=== PATIENT | male | born 1995 | race Caucasian/White ===

== ENCOUNTER 2016-06-01 16:57 | Inpatient (IN) | payer OTHER ==
[~2016-06-01] VITALS: Ht 162.6 cm; Wt 62.9 kg
[~2016-06-01 16:57] MED LIST: DEPAKOTE ER500 MG PO; DEPAKOTE500 MG PO; DIVALPROEX SOD250 M1 PO; DIVALPROEX SOD500 M1 PO; ERYTHROMYCIN O3.5 GM LEFT EYE; KEPPRA750 MG PO; LEVETIRACETAM750 MG PO; OXCARBAZEPINE150 MG PO; ZONISAMIDE100 MG PO
[2016-06-01] MEDS ORDERED: LORAZEPAM0.5 MG PO (17:12)
[2016-06-01 17:35] LABS: HEMATOCRIT 41.2 % (38.0-50.0); MCH 31.2 PG (29.0-34.0); MCHC 35.2 G/DL (30.0-36.0); MCV 88.6 FL (86-99); MEAN PLAT.VOLUME 10.4 uM^3 (9.0-12.4); PLATELET COUNT 285 K/uL (156-360); RBC DIS.WIDTH-CV 13.2 % (11.8-14.6); RED BLOOD COUNT 4.65 M/uL (4.00-5.50); WHITE BLOOD COUNT 16.5 K/uL (4.1-10.2)
[2016-06-01 17:54] LABS: CHLORIDE 105 mEq/L (99-109); SODIUM 142 mEq/L (136-147)
[2016-06-01 17:56] LABS: GLUCOSE 212 mg/dL (70-99)
[2016-06-01 17:57] LABS: ANION GAP 14 MEQ/L (2-14)
[2016-06-01 18:00] LABS: GFR ESTIMATE (CALCULATED) > 59 mL/min/
[2016-06-01 18:01] LABS: UREA NITROGEN (BUN) 17 mg/dL (9-23)
[2016-06-01] MEDS ORDERED: DEPAKOTE ER250 MG PO (21:27)
[2016-06-01] MEDS ORDERED: DEPAKOTE ER500 MG PO (21:27)
[2016-06-02 03:41] LABS: ADD MIUA? NO; BILIRUBIN NEGATIVE; BLOOD NEGATIVE; COLOR YELLOW ((YELLOW)); GLUCOSE (STRIP) NEGATIVE; KETONES 80; LEUKOCYTES NEGATIVE; NITRITE NEGATIVE; PROTEIN (STRIP) 30; SPECIFIC GRAVITY 1.028 (1.000-1.030); UCUL ADDED? NO; UROBILINOGEN 0.2 MG/DL (0.2-1.0)
[2016-06-02 07:19] LABS: HEMATOCRIT 37.8 % (38.0-50.0); MCHC 34.4 G/DL (30.0-36.0); PLATELET COUNT 221 K/uL (156-360); RBC DIS.WIDTH-CV 13.8 % (11.8-14.6); RBC DIS.WIDTH-SD 45.8 % (39-53)
[2016-06-02 07:20] LABS: WHITE BLOOD COUNT 9.6 K/uL (4.1-10.2)
[2016-06-02 07:21] LABS: ALKALINE PHOSPHATASE 59 IU/L (3-129); ANION GAP 8 MEQ/L (2-14); CHLORIDE 105 MEQ/L (99-109); GFR ESTIMATE (CALCULATED) > 59 mL/min/; SAMPLE HEMOLYSIS CHECK 0; SAMPLE ICTERIC CHECK 0; SAMPLE LIPEMIA CHECK 0; SODIUM 139 MEQ/L (136-147); TOTAL BILIRUBIN 0.7 MG/DL (0.0-1.0); UREA NITROGEN (BUN) 17 mg/dL (9-23)
[2016-06-02 07:22] LABS: GLUCOSE 85 mg/dL (70-99)
[2016-06-02 14:20] VITALS: BP 132/67
== END 2016-06-02 14:34 | disposition left against medical advice (07) | DRG 101 ==
LOC: EME 16:57 → EDOF 20:53
PROVIDERS: Emergency Medicine; Internal Medicine
DX: G40.901 Epilepsy, unspecified, not intractable, with status epilepticus (principal); Z91.14 Patient's other noncompliance with medication regimen; Z88.0 Allergy status to penicillin; Z88.1 Allergy status to other antibiotic agents; F17.210 Nicotine dependence, cigarettes, uncomplicated; F12.10 Cannabis abuse, uncomplicated
CPT/HCPCS: 70450; 80048; 80053; 80164; 81003; 82803; 85027; 93005; 95819; 99281; 99285; J1644; J2060; J2250; J2405; J7030; S0028

== ENCOUNTER 2016-06-24 12:58 | Emergency (ER) | payer OTHER ==
[~2016-06-24] VITALS: Ht 167.6 cm; Wt 67.0 kg
[~2016-06-24 12:58] MED LIST changes: +DEPAKOTE ER250 MG PO; +LORAZEPAM0.5 MG PO
[2016-06-24 13:45] LABS: EOSINOPHIL (%) 0.1 % (0-5); HEMATOCRIT 43.8 % (38.0-50.0); IMMATURE GRANULOCYTE (%) 0.3 % (0.0-0.7); IMMATURE GRANULOCYTE COUNT 0.9 K/uL; LYMPHOCYTE COUNT 2.3 K/uL (1.0-2.8); MCH 31.4 PG (29.0-34.0); MCHC 35.2 G/DL (30.0-36.0); MCV 89.2 FL (86-99); MEAN PLAT.VOLUME 10.8 uM^3 (9.0-12.4); MONOCYTE (%) 4.7 % (3-12); MONOCYTE COUNT 1.3 K/uL (0-0.8); NEUTROPHIL (%) 86.4 % (45-76); NEUTROPHIL COUNT 23.9 K/uL (1.8-6.4); RBC DIS.WIDTH-CV 13.2 % (11.8-14.6); RBC DIS.WIDTH-SD 42.3 % (39-53); RED BLOOD COUNT 4.91 M/uL (4.00-5.50)
[2016-06-24 13:47] LABS: CHLORIDE 105 mEq/L (99-109); POTASSIUM 3.6 mEq/L (3.7-5.4); SODIUM 141 mEq/L (136-147)
[2016-06-24 13:48] LABS: PLATELET COUNT 320 K/uL (156-360); WHITE BLOOD COUNT 27.6 K/uL (4.1-10.2)
[2016-06-24 13:49] LABS: GLUCOSE 220 mg/dL (70-99)
[2016-06-24 13:50] LABS: ANION GAP 17 MEQ/L (2-14)
[2016-06-24 13:52] LABS: SERUM ETHYL ALCOHOL < 10 mg/dL
[2016-06-24 13:53] LABS: GFR ESTIMATE (CALCULATED) > 59 mL/min/; UREA NITROGEN (BUN) 20 mg/dL (9-23)
[2016-06-24 19:46] VITALS: BP 127/53
== END 2016-06-24 19:48 | disposition home or self-care (01) ==
LOC: EME 12:58
PROVIDERS: Emergency Medicine
DX: G40.909 Epilepsy, unspecified, not intractable, without status epilepticus (principal); D72.829 Elevated white blood cell count, unspecified; Z91.14 Patient's other noncompliance with medication regimen; F17.200 Nicotine dependence, unspecified, uncomplicated
CPT/HCPCS: 70450; 80048; 85025; 99281; 99285; G0480; J2060; J2250

== ENCOUNTER 2016-09-11 07:19 | Inpatient (IN) | payer OTHER ==
[~2016-09-11] VITALS: Ht 177.8 cm; Wt 64.7 kg
[2016-09-11] VITALS (12 sets, daily range): BP systolic 107–126; BP diastolic 50–61
[2016-09-11 08:06] LABS: EOSINOPHIL COUNT 0.1 K/uL (0-0.3); HEMATOCRIT 45.5 % (36.0-46.0); IMMATURE GRANULOCYTE (%) 0.4 % (0.0-0.7); IMMATURE GRANULOCYTE COUNT 0.1 K/uL; INSTRUMENT ABS NEUTROPHIL CT 8.2 K/uL; LYMPHOCYTE COUNT 4.4 K/uL (1.0-2.8); MCH 30.8 PG (29.0-34.0); MCHC 33.4 G/DL (30.0-36.0); MCV 92.1 FL (86-99); MEAN PLAT.VOLUME 10.5 uM^3 (9.0-12.4); MONOCYTE (%) 3.6 % (3-12); MONOCYTE COUNT 0.5 K/uL (0-0.8); NEUTROPHIL (%) 61.6 % (45-76); NEUTROPHIL COUNT 8.2 K/uL (1.8-6.4); PLATELET COUNT 316 K/uL (156-360); RBC DIS.WIDTH-CV 12.1 % (11.8-14.6); RBC DIS.WIDTH-SD 40.5 % (39-53); RED BLOOD COUNT 4.94 M/uL (4.00-5.50); WHITE BLOOD COUNT 13.4 K/uL (4.1-10.2)
[2016-09-11 08:08] LABS: PCO2 58 mm Hg (35-45); pH 7.24 (7.35-7.45)
[2016-09-11 08:09] LABS: BASE EXCESS -3.7 mEq/L (-3 to +3); BICARBONATE 24.9 mEq/L (22-26); CARBOXY HGB 2.6 % (0-5); DEVICE 840; FI02 50 %; HEMOGLOBIN 15.4 (11.9-15.5); MECHANICAL RATE 16 resp/min; METHEMOGLOBIN 1.3 % (0-1.5); MODE AC; PO2 168 mm Hg (80-100); SITE LR; TIDAL VOLUME 400 ML; TOTAL RESP RATE 16 resp/min
[2016-09-11 08:10] LABS: COMMENTS - BLOOD GASES A+C+; PEEP 5 CM/H20
[2016-09-11] MEDS ORDERED: LAMICTAL25 MG PO (08:29)
[2016-09-11] MEDS ORDERED: DIVALPROEX SOD250 M1 PO (08:29)
[2016-09-11 09:01] LABS: ALKALINE PHOSPHATASE 69 IU/L (3-129); ANION GAP 15 MEQ/L (2-14); CHLORIDE 103 MEQ/L (99-109); GFR ESTIMATE (CALCULATED) > 59 mL/min/; GLUCOSE 231 mg/dL (70-99); POTASSIUM 3.2 MEQ/L (3.7-5.4); SAMPLE HEMOLYSIS CHECK 0; SAMPLE ICTERIC CHECK 0; SAMPLE LIPEMIA CHECK 0; SODIUM 140 MEQ/L (136-147); TOTAL BILIRUBIN 0.4 MG/DL (0.0-1.0); UREA NITROGEN (BUN) 19 mg/dL (9-23)
[2016-09-11 09:55] LABS: ADD MEDTOX COMMENT Y; AMPHETAMINE NEGATIVE (500 ng/mL); BARBITURATES NEGATIVE (200 ng/mL); BENZODIAZEPINES NEGATIVE (150 ng/mL); COCAINE NEGATIVE (150 ng/mL); INTERNAL CONTROLS VALID? YES; METHADONE NEGATIVE (200 ng/mL); METHAMPHETAMINE NEGATIVE (500 ng/mL); OPIATES (MORPHINE) NEGATIVE (100 ng/mL); OXYCODONE NEGATIVE (100 ng/mL); PHENCYCLIDINE NEGATIVE (25 ng/mL); PROPOXYPHENE NEGATIVE (300 ng/mL); THC CANNABINOIDS PRESUMPTIVE POSITIVE (50 ng/mL); TRICYCLIC ANTIDEPRESSANTS NEGATIVE (300 ng/mL)
[2016-09-11 12:57] LABS: ADD MIUA? YES; BILIRUBIN NEGATIVE; BLOOD NEGATIVE; COLOR YELLOW ((YELLOW)); GLUCOSE (STRIP) >=500; KETONES NEGATIVE; LEUKOCYTES NEGATIVE; NITRITE NEGATIVE; PROTEIN (STRIP) 30; SPECIFIC GRAVITY 1.018 (1.000-1.030); UROBILINOGEN 0.2 MG/DL (0.2-1.0)
[2016-09-11 13:20] LABS: BACTERIA RARE /HPF; EPITHELIAL CELLS RARE /HPF; HYALINE CASTS 0-5 /LPF; MUCUS NONE SEEN /LPF; RED BLOOD CELLS 0-5 /HPF (0-5); UCUL ADDED? NO; WHITE BLOOD CELLS 0-5 /HPF (0-5)
[2016-09-11 15:12] LABS: METH RESISTANT S AUREUS PCR NEGATIVE (NEGATIVE)
[2016-09-11 15:14] LABS: PROBE CHECK PASS; SPECIMEN PROCESSING CONTROL PASS
[2016-09-12] VITALS (16 sets, daily range): BP systolic 110–158; BP diastolic 53–88
[2016-09-12 07:20] LABS: HEMATOCRIT 38.3 % (38.0-50.0); MCH 31.3 PG (29.0-34.0); MCHC 34.7 G/DL (30.0-36.0); MCV 90.1 FL (86-99); RBC DIS.WIDTH-CV 12.4 % (11.8-14.6); RED BLOOD COUNT 4.25 M/uL (4.00-5.50)
[2016-09-12 07:29] LABS: WHITE BLOOD COUNT 5.5 K/uL (4.1-10.2)
[2016-09-12 08:11] LABS: ANION GAP 8 MEQ/L (2-14); CHLORIDE 111 MEQ/L (99-109); GFR ESTIMATE (CALCULATED) > 59 mL/min/; POTASSIUM 3.2 MEQ/L (3.7-5.4); SAMPLE HEMOLYSIS CHECK 0; SAMPLE ICTERIC CHECK 0; SAMPLE LIPEMIA CHECK 0; SODIUM 141 MEQ/L (136-147); UREA NITROGEN (BUN) 8 mg/dL (9-23)
[2016-09-12 08:13] LABS: GLUCOSE 70 mg/dL (70-99)
[2016-09-12 09:15] LABS: MEAN PLAT.VOLUME 10.6 uM^3 (9.0-12.4)
[2016-09-12 09:21] LABS: PLATELET COUNT 201 K/uL (156-360)
[2016-09-12] MEDS ORDERED: DEPAKOTE ER500 MG PO (14:53)
[2016-09-13 03:55] VITALS: BP 133/70
[2016-09-13 07:40] VITALS: BP 135/68
[2016-09-13 11:11] VITALS: BP 133/76
[2016-09-13] MEDS ORDERED: ZONISAMIDE100 MG PO (13:06)
== END 2016-09-13 13:39 | disposition home or self-care (01) | DRG 100 ==
LOC: EME 07:19 → EDBD 07:19 → EME 07:19 → EDSEX 07:19 → EDOF 09:17 → 4WEST 12:15 → EDOF 12:19 → 4WEST 12:36 → 5SOUTH 09-12 16:21
PROVIDERS: Emergency Medicine; Internal Medicine Critical Care Medicine
DX: G40.401 Other generalized epilepsy and epileptic syndromes, not intractable, with status epilepticus (principal); J96.01 Acute respiratory failure with hypoxia; Z91.14 Patient's other noncompliance with medication regimen; E87.2 Acidosis; E87.6 Hypokalemia; F12.10 Cannabis abuse, uncomplicated; D72.829 Elevated white blood cell count, unspecified; F19.10 Other psychoactive substance abuse, uncomplicated; R45.1 Restlessness and agitation; R00.0 Tachycardia, unspecified; F17.210 Nicotine dependence, cigarettes, uncomplicated; E86.0 Dehydration
CPT/HCPCS: 36600; 71010; 80048; 80053; 80164; 81003; 82803; 82948; 83605; 84999; 85025; 85027; 87040; 87070; 87205; 87641; 93005; 94002; 94003; 95819; 99281; 99285; J1630; J1650; J1953; J1956; J2060; J2250; J2704; J3480; J7030; J7050; S0028

== ENCOUNTER 2016-09-24 14:57 | Inpatient (IN) | payer OTHER ==
[2016-09-24] VITALS (8 sets, daily range): BP systolic 109–123; BP diastolic 48–67
[~2016-09-24] VITALS: Ht 172.7 cm; Wt 62.4 kg
[~2016-09-24 14:57] MED LIST changes: +LAMICTAL25 MG PO
[2016-09-24 15:36] LABS: HEMATOCRIT 45.9 % (38.0-50.0); MCHC 32.9 G/DL (30.0-36.0); MCV 91.3 FL (86-99); MEAN PLAT.VOLUME 10.1 uM^3 (9.0-12.4); PLATELET COUNT 367 K/uL (156-360); RBC DIS.WIDTH-CV 12.6 % (11.8-14.6); RBC DIS.WIDTH-SD 42.3 % (39-53); RED BLOOD COUNT 5.03 M/uL (4.00-5.50); WHITE BLOOD COUNT 15.4 K/uL (4.1-10.2)
[2016-09-24 15:56] LABS: CHLORIDE 106 mEq/L (99-109); POTASSIUM 4.1 mEq/L (3.7-5.4); SODIUM 141 mEq/L (136-147)
[2016-09-24 15:58] LABS: GLUCOSE 156 mg/dL (70-99)
[2016-09-24 15:59] LABS: ANION GAP 12 MEQ/L (2-14)
[2016-09-24 16:01] LABS: GFR ESTIMATE (CALCULATED) > 59 mL/min/
[2016-09-24 16:02] LABS: UREA NITROGEN (BUN) 17 mg/dL (9-23)
[2016-09-24 16:42] LABS: ADD MIUA? YES; BILIRUBIN NEGATIVE; BLOOD NEGATIVE; COLOR YELLOW ((YELLOW)); GLUCOSE (STRIP) NEGATIVE; KETONES 5; LEUKOCYTES NEGATIVE; NITRITE NEGATIVE; PROTEIN (STRIP) 30; SPECIFIC GRAVITY 1.028 (1.000-1.030); UROBILINOGEN 0.2 MG/DL (0.2-1.0)
[2016-09-24 16:48] LABS: BACTERIA NONE SEEN /HPF; EPITHELIAL CELLS NONE SEEN /HPF; GRANULAR CASTS 0-5 /LPF; HYALINE CASTS TNTC /LPF; MUCUS 1+ /LPF; RED BLOOD CELLS 0-5 /HPF (0-5); UCUL ADDED? NO; WHITE BLOOD CELLS 0-5 /HPF (0-5)
[2016-09-24 16:49] LABS: AMPHETAMINE NEGATIVE (500 ng/mL); BARBITURATES NEGATIVE (200 ng/mL); BENZODIAZEPINES NEGATIVE (150 ng/mL); COCAINE NEGATIVE (150 ng/mL); INTERNAL CONTROLS VALID? YES; METHADONE NEGATIVE (200 ng/mL); METHAMPHETAMINE NEGATIVE (500 ng/mL); OPIATES (MORPHINE) NEGATIVE (100 ng/mL); OXYCODONE NEGATIVE (100 ng/mL); PHENCYCLIDINE NEGATIVE (25 ng/mL); PROPOXYPHENE NEGATIVE (300 ng/mL); THC CANNABINOIDS PRESUMPTIVE POSITIVE (50 ng/mL); TRICYCLIC ANTIDEPRESSANTS NEGATIVE (300 ng/mL)
[2016-09-24 16:50] LABS: ADD MEDTOX COMMENT Y
[2016-09-24] MEDS ORDERED: ZONISAMIDE100 MG PO (16:57)
[2016-09-24 17:08] LABS: BASE EXCESS -3.2 mEq/L (-3 to +3); BICARBONATE 23.6 mEq/L (22-26); CARBOXY HGB 2.1 % (0-5); COMMENTS - BLOOD GASES C+A-N/A; DEVICE 980 VENTILATOR; FI02 50 %; MECHANICAL RATE 16 resp/min; METHEMOGLOBIN 1.3 % (0-1.5); MODE AC; PCO2 48 mm Hg (35-45); PEEP 5 CM/H20; PO2 113 mm Hg (80-100); SITE RR; TIDAL VOLUME 450 ML; TOTAL RESP RATE 18 resp/min
[2016-09-24 19:33] LABS: METH RESISTANT S AUREUS PCR NEGATIVE (NEGATIVE)
[2016-09-24 19:34] LABS: PROBE CHECK PASS; SPECIMEN PROCESSING CONTROL PASS
[2016-09-25] VITALS (16 sets, daily range): BP systolic 115–135; BP diastolic 60–94
[2016-09-25 06:15] LABS: HEMATOCRIT 38.4 % (38.0-50.0); MCH 31.1 PG (29.0-34.0); MCHC 34.4 G/DL (30.0-36.0); MCV 90.4 FL (86-99); RBC DIS.WIDTH-SD 42.9 % (39-53); RED BLOOD COUNT 4.25 M/uL (4.00-5.50); WHITE BLOOD COUNT 8.9 K/uL (4.1-10.2)
[2016-09-25 06:47] LABS: ALKALINE PHOSPHATASE 56 IU/L (3-129); ANION GAP 8 MEQ/L (2-14); CHLORIDE 110 MEQ/L (99-109); GFR ESTIMATE (CALCULATED) > 59 mL/min/; POTASSIUM 3.5 MEQ/L (3.7-5.4); SAMPLE HEMOLYSIS CHECK 0; SAMPLE ICTERIC CHECK 0; SAMPLE LIPEMIA CHECK 0; SODIUM 142 MEQ/L (136-147); TOTAL BILIRUBIN 0.7 MG/DL (0.0-1.0); UREA NITROGEN (BUN) 15 mg/dL (9-23)
[2016-09-25 06:50] LABS: GLUCOSE 80 mg/dL (70-99)
[2016-09-25 06:58] LABS: MEAN PLAT.VOLUME 10.8 uM^3 (9.0-12.4); PLAT.SUFFICIENCY ADEQUATE
[2016-09-25 07:05] LABS: PLATELET COUNT 221 K/uL (156-360)
[2016-09-25] MEDS ORDERED: DIVALPROEX SOD250 M1 PO (11:08)
[2016-09-25] MEDS ORDERED: LAMICTAL25 MG PO (11:09)
== END 2016-09-25 17:25 | disposition left against medical advice (07) | DRG 918 ==
LOC: EME → EDBD 14:57 → EME 14:57 → EDOF 16:10 → 4WEST 16:10
PROVIDERS: Emergency Medicine; Internal Medicine Pulmonary Disease
PROC: 0BH17EZ Insertion of Endotracheal Airway into Trachea, Via Natural or Artificial Opening (ICD-10-PCS; principal; 2016-09-24)
PROC: 5A09357 Assistance with Respiratory Ventilation, Less than 24 Consecutive Hours, Continuous Positive Airway Pressure (ICD-10-PCS; principal; 2016-09-24)
DX: T40.995A Adverse effect of other psychodysleptics [hallucinogens], initial encounter (principal); G40.901 Epilepsy, unspecified, not intractable, with status epilepticus; F12.10 Cannabis abuse, uncomplicated; F17.210 Nicotine dependence, cigarettes, uncomplicated; Z78.1 Physical restraint status; Z91.14 Patient's other noncompliance with medication regimen; Z88.0 Allergy status to penicillin; Z82.5 Family history of asthma and other chronic lower respiratory diseases
CPT/HCPCS: 36600; 71010; 80048; 80053; 81003; 82803; 84999; 85027; 87070; 87205; 87641; 94002; 94003; 95819; 99281; 99285; J1953; J2060; J2250; J2704; J7030; J7050; S0028

== ENCOUNTER 2016-11-09 15:52 | Inpatient (IN) | payer OTHER ==
[~2016-11-09] VITALS: Ht 175.3 cm; Wt 64.5 kg
[2016-11-09 16:24] LABS: POINT-OF-CARE METER ID UU13113747; POINT-OF-CARE USER ID 608261302
[2016-11-09 16:59] LABS: HEMATOCRIT 44.8 % (38.0-50.0); MCH 30.5 PG (29.0-34.0); MCHC 34.2 G/DL (30.0-36.0); MCV 89.2 FL (86-99); MEAN PLAT.VOLUME 10.3 uM^3 (9.0-12.4); PLATELET COUNT 301 K/uL (156-360); RBC DIS.WIDTH-CV 13.1 % (11.8-14.6); RBC DIS.WIDTH-SD 42.7 % (39-53); RED BLOOD COUNT 5.02 M/uL (4.00-5.50); WHITE BLOOD COUNT 14.1 K/uL (4.1-10.2)
[2016-11-09 17:10] LABS: ADD MIUA? YES; BILIRUBIN NEGATIVE; BLOOD MODERATE; COLOR YELLOW ((YELLOW)); GLUCOSE (STRIP) NEGATIVE; KETONES 5; LEUKOCYTES NEGATIVE; NITRITE NEGATIVE; PROTEIN (STRIP) 100; SPECIFIC GRAVITY 1.019 (1.000-1.030); UROBILINOGEN 0.2 MG/DL (0.2-1.0)
[2016-11-09 17:12] LABS: CHLORIDE 105 mEq/L (99-109); POTASSIUM 3.3 mEq/L (3.7-5.4); SODIUM 142 mEq/L (136-147)
[2016-11-09 17:14] LABS: GLUCOSE 134 mg/dL (70-99)
[2016-11-09 17:15] LABS: ANION GAP 23 MEQ/L (2-14)
[2016-11-09 17:16] LABS: BACTERIA NONE SEEN /HPF; EPITHELIAL CELLS RARE /HPF; HYALINE CASTS 0-5 /LPF; MUCUS 1+ /LPF; RED BLOOD CELLS 0-5 /HPF (0-5); UCUL ADDED? NO; WHITE BLOOD CELLS 0-5 /HPF (0-5)
[2016-11-09 17:16] LABS: TOTAL BILIRUBIN 0.5 mg/dL (0.0-1.0)
[2016-11-09 17:17] LABS: SERUM ETHYL ALCOHOL < 10 mg/dL
[2016-11-09 17:18] LABS: ALKALINE PHOSPHATASE 86 IU/L (3-129); GFR ESTIMATE (CALCULATED) > 59 mL/min/
[2016-11-09 17:19] LABS: UREA NITROGEN (BUN) 13 mg/dL (9-23)
[2016-11-09 17:19] LABS: BASE EXCESS -3.5 mEq/L (-3 to +3); BICARBONATE 22.7 mEq/L (22-26); CARBOXY HGB 2.3 % (0-5); COMMENTS - BLOOD GASES C+; DEVICE VENT; FI02 100 %; METHEMOGLOBIN 1.4 % (0-1.5); MODE AC; PCO2 44 mm Hg (35-45); PO2 470 mm Hg (80-100); SITE LR; pH 7.32 (7.35-7.45)
[2016-11-09 17:20] LABS: MECHANICAL RATE 14 resp/min; PEEP 5 CM/H20; TIDAL VOLUME 400 ML; TOTAL RESP RATE 18 resp/min
[2016-11-09 17:20] LABS: ADD MEDTOX COMMENT Y; AMPHETAMINE NEGATIVE (500 ng/mL); BARBITURATES NEGATIVE (200 ng/mL); BENZODIAZEPINES NEGATIVE (150 ng/mL); COCAINE NEGATIVE (150 ng/mL); INTERNAL CONTROLS VALID? YES; METHADONE NEGATIVE (200 ng/mL); METHAMPHETAMINE NEGATIVE (500 ng/mL); OPIATES (MORPHINE) NEGATIVE (100 ng/mL); OXYCODONE NEGATIVE (100 ng/mL); PHENCYCLIDINE NEGATIVE (25 ng/mL); PROPOXYPHENE NEGATIVE (300 ng/mL); THC CANNABINOIDS PRESUMPTIVE POSITIVE (50 ng/mL); TRICYCLIC ANTIDEPRESSANTS NEGATIVE (300 ng/mL)
[2016-11-09 17:21] LABS: CREATINE KINASE 309 IU/L (1-294)
[2016-11-09 18:43] LABS: APPEARANCE CLEAR/COLORLESS; RED CELL DILUTION 1
[2016-11-09 18:44] LABS: CSF EOSINOPHILS 0 % (0-25); MONONUCLEAR WBC'S 0 % (50-90); POLY RAW COUNT 1; POLYNUCLEAR WBC'S 100 % (0-3); RED CELL AREA COUNTED 18; RED CELL COUNT 0 /MM^3 (0-1); WBC AREA COUNTED 18; WBC DILUTION 1; WHITE CELL COUNT 0 /MM^3 (0-5); WHITE CELL RAW COUNT 0
[2016-11-09 19:45] VITALS: BP 91/71
[2016-11-09 20:00] VITALS: BP 91/71
[2016-11-09 21:00] VITALS: BP 126/60
[2016-11-09 22:00] VITALS: BP 126/60; BP 127/55
[2016-11-09 22:07] LABS: METH RESISTANT S AUREUS PCR NEGATIVE (NEGATIVE)
[2016-11-09 22:09] LABS: PROBE CHECK PASS; SPECIMEN PROCESSING CONTROL PASS
[2016-11-09 23:00] VITALS: BP 120/55
[2016-11-09 23:34] LABS: CREATINE KINASE 1103 IU/L (1-294)
[2016-11-10] VITALS (11 sets, daily range): BP systolic 109–132; BP diastolic 45–68
[2016-11-10 00:06] LABS: CHLORIDE 111 mEq/L (99-109); POTASSIUM 3.3 mEq/L (3.7-5.4); SODIUM 141 mEq/L (136-147)
[2016-11-10 00:09] LABS: ANION GAP 10 MEQ/L (2-14); GLUCOSE 97 mg/dL (70-99)
[2016-11-10 00:11] LABS: GFR ESTIMATE (CALCULATED) > 59 mL/min/
[2016-11-10 00:12] LABS: UREA NITROGEN (BUN) 11 mg/dL (9-23)
[2016-11-10 06:09] LABS: ANION GAP 6 MEQ/L (2-14); CHLORIDE 115 MEQ/L (99-109); GFR ESTIMATE (CALCULATED) > 59 mL/min/; GLUCOSE 82 mg/dL (70-99); POTASSIUM 3.7 MEQ/L (3.7-5.4); SAMPLE HEMOLYSIS CHECK 0; SAMPLE ICTERIC CHECK 0; SAMPLE LIPEMIA CHECK 0; SODIUM 142 MEQ/L (136-147); UREA NITROGEN (BUN) 10 mg/dL (9-23)
[2016-11-10 06:53] LABS: HEMATOCRIT 33.2 % (38.0-50.0); MCH 31.3 PG (29.0-34.0); MCHC 34.6 G/DL (30.0-36.0); MCV 90.2 FL (86-99); RBC DIS.WIDTH-CV 13.4 % (11.8-14.6); RBC DIS.WIDTH-SD 44.5 % (39-53); WHITE BLOOD COUNT 7.2 K/uL (4.1-10.2)
[2016-11-10 07:05] LABS: RED BLOOD COUNT 3.68 M/uL (4.00-5.50)
[2016-11-10 07:14] LABS: CREATINE KINASE 856 IU/L (1-294)
[2016-11-10 08:33] LABS: MEAN PLAT.VOLUME 10.5 uM^3 (9.0-12.4); PLAT.SUFFICIENCY ADEQUATE
[2016-11-10 08:34] LABS: PLATELET COUNT 185 K/uL (156-360)
== END 2016-11-10 11:04 | disposition left against medical advice (07) | DRG 917 ==
LOC: EME 15:52 → EDOF 17:53 → 4WEST 19:42
PROVIDERS: Emergency Medicine; Internal Medicine Critical Care Medicine; Surgery
PROC: 5A1935Z Respiratory Ventilation, Less than 24 Consecutive Hours (ICD-10-PCS; principal; 2016-11-09)
PROC: 0BH17EZ Insertion of Endotracheal Airway into Trachea, Via Natural or Artificial Opening (ICD-10-PCS; principal; 2016-11-09)
PROC: 009U3ZX Drainage of Spinal Canal, Percutaneous Approach, Diagnostic (ICD-10-PCS; 2016-11-09)
DX: T40.991A Poisoning by other psychodysleptics [hallucinogens], accidental (unintentional), initial encounter (principal); J96.90 Respiratory failure, unspecified, unspecified whether with hypoxia or hypercapnia; N17.9 Acute kidney failure, unspecified; M62.82 Rhabdomyolysis; E87.2 Acidosis; G40.901 Epilepsy, unspecified, not intractable, with status epilepticus; F12.10 Cannabis abuse, uncomplicated; W07.XXXA Fall from chair, initial encounter; F17.200 Nicotine dependence, unspecified, uncomplicated; Z82.5 Family history of asthma and other chronic lower respiratory diseases; Z91.14 Patient's other noncompliance with medication regimen; Z88.0 Allergy status to penicillin; Z88.1 Allergy status to other antibiotic agents
CPT/HCPCS: 36600; 70450; 71010; 80048; 80048 91; 80053; 80164; 81003; 82550; 82550 91; 82803; 82945; 82948; 83605; 84157; 84999; 85027; 87040; 87070; 87205; 87641; 89051; 94002; 94003; 95819; 99281; 99285; G0480; J0696; J1630; J1650; J1953; J2060; J2704; J3010; J3370; J3480; J7030; J7050; J7120; S0028

== ENCOUNTER → 2016-12-09 | Emergency (ER) | payer OTHER ==
[~2016-12-09] VITALS: Ht 177.8 cm; Wt 64.8 kg
[~2016-12-09] MED LIST changes: +OXCARBAZEPINE600 MG PO
[2016-12-09 17:49] LABS: HEMATOCRIT 39.5 % (38.0-50.0); MCH 30.5 PG (29.0-34.0); MCHC 35.2 G/DL (30.0-36.0); MCV 86.8 FL (86-99); MEAN PLAT.VOLUME 9.9 uM^3 (9.0-12.4); PLATELET COUNT 241 K/uL (156-360); RBC DIS.WIDTH-CV 12.6 % (11.8-14.6); RBC DIS.WIDTH-SD 40.5 % (39-53); RED BLOOD COUNT 4.55 M/uL (4.00-5.50); WHITE BLOOD COUNT 20.2 K/uL (4.1-10.2)
[2016-12-09 17:56] LABS: CHLORIDE 108 mEq/L (99-109); POTASSIUM 3.9 mEq/L (3.7-5.4); SODIUM 139 mEq/L (136-147)
[2016-12-09 17:58] LABS: GLUCOSE 185 mg/dL (70-99)
[2016-12-09 17:59] LABS: ANION GAP 12 MEQ/L (2-14)
[2016-12-09 18:00] LABS: TOTAL BILIRUBIN 0.3 mg/dL (0.0-1.0)
[2016-12-09 18:01] LABS: SERUM ETHYL ALCOHOL < 10 mg/dL
[2016-12-09 18:02] LABS: ALKALINE PHOSPHATASE 73 IU/L (3-129); GFR ESTIMATE (CALCULATED) > 59 mL/min/
[2016-12-09 18:03] LABS: UREA NITROGEN (BUN) 15 mg/dL (9-23)
[2016-12-09 18:05] LABS: CREATINE KINASE 213 IU/L (1-294)
[2016-12-09 18:37] LABS: SAMPLE HEMOLYSIS CHECK 0; SAMPLE ICTERIC CHECK 0; SAMPLE LIPEMIA CHECK 0
[2016-12-09 21:14] LABS: ADD MIUA? YES; BILIRUBIN NEGATIVE; BLOOD SMALL; COLOR STRAW ((YELLOW)); GLUCOSE (STRIP) 150; KETONES 20; LEUKOCYTES NEGATIVE; NITRITE NEGATIVE; PROTEIN (STRIP) NEGATIVE; SPECIFIC GRAVITY 1.016 (1.000-1.030); UROBILINOGEN 0.2 MG/DL (0.2-1.0)
[2016-12-09 21:19] LABS: BACTERIA NONE SEEN /HPF; EPITHELIAL CELLS NONE SEEN /HPF; MUCUS TRACE /LPF; RED BLOOD CELLS 0-5 /HPF (0-5); WHITE BLOOD CELLS 0-5 /HPF (0-5)
[2016-12-09 21:35] LABS: AMPHETAMINE NEGATIVE (500 ng/mL); BENZODIAZEPINES PRESUMPTIVE POSITIVE (150 ng/mL); COCAINE NEGATIVE (150 ng/mL); METHAMPHETAMINE NEGATIVE (500 ng/mL); OPIATES (MORPHINE) NEGATIVE (100 ng/mL); PHENCYCLIDINE NEGATIVE (25 ng/mL); THC CANNABINOIDS PRESUMPTIVE POSITIVE (50 ng/mL)
[2016-12-09 21:36] LABS: ADD MEDTOX COMMENT Y; BARBITURATES NEGATIVE (200 ng/mL); INTERNAL CONTROLS VALID? YES; METHADONE NEGATIVE (200 ng/mL); OXYCODONE NEGATIVE (100 ng/mL); PROPOXYPHENE NEGATIVE (300 ng/mL); TRICYCLIC ANTIDEPRESSANTS NEGATIVE (300 ng/mL)
[2016-12-09 22:03] LABS: BENZODIAZEPINES QUANT VALUE 0 NG/ML; BENZODIAZEPINES, URINE SCREEN Negative (200 ng/mL)
[2016-12-10 06:58] VITALS: BP 129/69
== END | disposition home or self-care (01) ==
LOC: EME 16:39
PROVIDERS: Emergency Medicine
DX: G40.909 Epilepsy, unspecified, not intractable, without status epilepticus (principal); F17.200 Nicotine dependence, unspecified, uncomplicated
CPT/HCPCS: 80053; 80164; 81003; 82550; 84999; 85027; 99281; 99284; G0480; J1630; J1953; J7030; J7050

== ENCOUNTER 2016-12-24 23:48 | Emergency (ER) | payer OTHER ==
[~2016-12-24] VITALS: Ht 167.6 cm; Wt 64.2 kg
[2016-12-25] MEDS ORDERED: NAPROSYN500 MG PO (01:00)
[2016-12-25 01:08] VITALS: BP 122/82
== END 2016-12-25 01:08 | disposition home or self-care (01) ==
LOC: EME 23:48
DX: S50.12XA Contusion of left forearm, initial encounter (principal); W20.8XXA Other cause of strike by thrown, projected or falling object, initial encounter
CPT/HCPCS: 73090; 73110; 99281; 99283

== ENCOUNTER 2017-01-21 17:50 | Emergency (ER) | payer OTHER ==
[~2017-01-21] VITALS: Ht 170.2 cm; Wt 70.0 kg
[~2017-01-21 17:50] MED LIST changes: +NAPROSYN500 MG PO
[2017-01-21 18:27] LABS: HEMATOCRIT 46.8 % (38.0-50.0); MCH 30.1 PG (29.0-34.0); MCHC 34.4 G/DL (30.0-36.0); MCV 87.5 FL (86-99); MEAN PLAT.VOLUME 9.7 uM^3 (9.0-12.4); PLATELET COUNT 340 K/uL (156-360); RBC DIS.WIDTH-CV 12.8 % (11.8-14.6); RBC DIS.WIDTH-SD 41.1 % (39-53); RED BLOOD COUNT 5.35 M/uL (4.00-5.50); WHITE BLOOD COUNT 9.1 K/uL (4.1-10.2)
[2017-01-21 18:37] LABS: CHLORIDE 106 mEq/L (99-109); POTASSIUM 3.8 mEq/L (3.7-5.4); SODIUM 141 mEq/L (136-147)
[2017-01-21 18:38] LABS: GLUCOSE 127 mg/dL (70-99)
[2017-01-21 18:40] LABS: ANION GAP 11 MEQ/L (2-14)
[2017-01-21 18:42] LABS: GFR ESTIMATE (CALCULATED) > 59 mL/min/
[2017-01-21 18:43] LABS: UREA NITROGEN (BUN) 13 mg/dL (9-23)
[2017-01-21 19:50] VITALS: BP 139/66
== END 2017-01-21 20:07 | disposition home or self-care (01) ==
LOC: EME 17:50
PROVIDERS: Emergency Medicine
DX: G40.909 Epilepsy, unspecified, not intractable, without status epilepticus (principal); Z91.14 Patient's other noncompliance with medication regimen; R11.2 Nausea with vomiting, unspecified; F17.200 Nicotine dependence, unspecified, uncomplicated
CPT/HCPCS: 70450; 80048; 81003; 85027; 93005; 99281; 99285; J2060; J2405; J7030

== ENCOUNTER 2017-02-06 12:30 | Emergency (ER) | payer OTHER ==
[~2017-02-06] VITALS: Ht 180.3 cm; Wt 62.1 kg
[2017-02-06 13:11] LABS: EOSINOPHIL (%) 0.8 % (0-5); EOSINOPHIL COUNT 0.1 K/uL (0-0.3); HEMATOCRIT 47.3 % (38.0-50.0); IMMATURE GRANULOCYTE (%) 0.7 % (0.0-0.7); IMMATURE GRANULOCYTE COUNT 0.1 K/uL; INSTRUMENT ABS NEUTROPHIL CT 6.7 K/uL; LYMPHOCYTE COUNT 2.6 K/uL (1.0-2.8); MCH 29.7 PG (29.0-34.0); MCHC 33.6 G/DL (30.0-36.0); MCV 88.4 FL (86-99); MONOCYTE (%) 6.5 % (3-12); MONOCYTE COUNT 0.7 K/uL (0-0.8); NEUTROPHIL (%) 65.7 % (45-76); NEUTROPHIL COUNT 6.7 K/uL (1.8-6.4); PLATELET COUNT 368 K/uL (156-360); RBC DIS.WIDTH-CV 12.8 % (11.8-14.6); RBC DIS.WIDTH-SD 41.3 % (39-53); RED BLOOD COUNT 5.35 M/uL (4.00-5.50); WHITE BLOOD COUNT 10.2 K/uL (4.1-10.2)
[2017-02-06 13:21] LABS: CHLORIDE 106 mEq/L (99-109); POTASSIUM 3.8 mEq/L (3.7-5.4); SODIUM 140 mEq/L (136-147)
[2017-02-06 13:22] LABS: GLUCOSE 170 mg/dL (70-99)
[2017-02-06 13:24] LABS: ANION GAP 16 MEQ/L (2-14)
[2017-02-06 13:26] LABS: GFR ESTIMATE (CALCULATED) > 59 mL/min/
[2017-02-06 13:27] LABS: UREA NITROGEN (BUN) 15 mg/dL (9-23)
[2017-02-06 16:14] VITALS: BP 129/79
== END 2017-02-06 16:15 | disposition home or self-care (01) ==
LOC: EME → EDBD 12:30 → EME 16:15
PROVIDERS: Emergency Medicine
DX: R56.9 Unspecified convulsions (principal); F17.200 Nicotine dependence, unspecified, uncomplicated
CPT/HCPCS: 80048; 85025; 93005; 99281; 99285; J2060; J2250

== ENCOUNTER 2017-11-14 01:16 | Emergency (ER) | payer OTHER ==
[~2017-11-14] VITALS: Ht 165.1 cm; Wt 59.1 kg
[2017-11-14 02:09] LABS: HEMATOCRIT 41.8 % (38.0-50.0); HEMOGLOBIN 15.2 G/DL (12.5-16.6); MCHC 36.4 G/DL (30.0-36.0); MCV 85.3 FL (86-99); PLATELET COUNT 270 K/uL (156-360); RBC DIS.WIDTH-CV 12.8 % (11.8-14.6); RBC DIS.WIDTH-SD 39.8 % (39-53); WHITE BLOOD COUNT 9.7 K/uL (4.1-10.2)
[2017-11-14 02:24] LABS: ALBUMIN 4.6 g/dL (3.2-4.8); CHLORIDE 110 mEq/L (99-109); POTASSIUM 3.7 mEq/L (3.7-5.4); SODIUM 143 mEq/L (136-147)
[2017-11-14 02:27] LABS: GLUCOSE 93 mg/dL (70-99); TOTAL PROTEIN 7.7 g/dL (6.4-8.3)
[2017-11-14 02:29] LABS: TOTAL BILIRUBIN 0.5 mg/dL (0.0-1.0)
[2017-11-14 02:30] LABS: ALKALINE PHOSPHATASE 95 IU/L (3-129); CREATININE 0.9 mg/dL (0.6-1.3); GFR ESTIMATE (CALCULATED) > 59 mL/min/ (58.99-99999)
[2017-11-14 02:31] LABS: UREA NITROGEN (BUN) 12 mg/dL (9-23)
[2017-11-14 02:32] LABS: AST (GOT) 26 IU/L (2-34)
[2017-11-14 02:33] LABS: ALT (GPT) 24 IU/L (3-49)
[2017-11-14] MEDS ORDERED: PERCOCET 5/31 TABLET PO (03:45)
[2017-11-14 04:14] VITALS: BP 142/84
== END 2017-11-14 04:15 | disposition home or self-care (01) ==
LOC: EME 01:16 → TRA 01:16
PROVIDERS: Emergency Medicine
DX: S01.511A Laceration without foreign body of lip, initial encounter (principal); S52.691A Other fracture of lower end of right ulna, initial encounter for closed fracture; V27.4XXA Motorcycle driver injured in collision with fixed or stationary object in traffic accident, initial encounter; F17.200 Nicotine dependence, unspecified, uncomplicated; Z88.0 Allergy status to penicillin; Z88.1 Allergy status to other antibiotic agents
CPT/HCPCS: 70450; 71260; 72125; 73090; 73110; 73130; 74177; 80053; 85027; 86850; 86900; 86901; 99281; 99284